=== PATIENT | female | born 1975 | race African-American/Black ===

== ENCOUNTER 2016-07-09 22:28 | Emergency (ER) | payer MEDICAID ==
[~2016-07-09] VITALS: Ht 165.1 cm; Wt 108.9 kg
[~2016-07-09 22:28] MED LIST: HYDRPOW88 PO; LISI10TA6 PO; NORCO 10/325 PO; XANAX PO; [UNRECOGNIZED DRUG - OTHER] PO
[2016-07-09 23:00] VITALS: BP 142/92
[2016-07-09 23:47] LABS: Basophils # (auto) 0 uL; Basophils % (auto) 0.4 % (0.0-2.0); Eosinophils # (auto) 0.2 uL; Eosinophils % (auto) 2.4 % (0.0-7.0); Hematocrit 40.9 % (36.0-46.0); Hemoglobin 13.4 g/dL (12.2-16.2); Lymphocytes # (auto) 3.4 uL; Lymphocytes % (auto) 49.4 % (10.0-50.0); Mean Corpuscular Hemoglobin 27.6 pg (28.0-32.0); Mean Corpuscular Hgb Conc. 32.7 g/dL (32.0-36.0); Mean Corpuscular Volume 84.3 fL (80.0-100.0); Mean Platelet Volume 8.2 fL (7.4-10.4); Monocytes # (auto) 0.7 uL; Monocytes % (auto) 9.6 % (0.0-12.0); Neutrophils # (auto) 2.6 uL; Neutrophils % (auto) 38.2 % (37.0-80.0); Platelet Count (auto) 322 10^3/uL (140-450); Red Cell Distribution Width 13.7 % (11.6-16.0); White Blood Cell 6.8 10^3/uL (4.4-10.8)
[2016-07-09 23:57] LABS: Urine Bilirubin Negative (Negative); Urine Blood TRACE /uL (Negative); Urine Ca Oxalate Crystal FEW (None Seen); Urine Color Yellow (Yellow); Urine Glucose Normal (Normal); Urine Ketone TRACE (Negative); Urine Mucus FEW (None Seen); Urine Nitrite Negative (Negative); Urine RBC 13 /hpf (0 - 4); Urine Squamous Epithelial Cell MOD /hpf (<5)
[2016-07-10 00:01] LABS: INR 0.94 (0.9-1.15); Partial Thromboplastin Time 26.3 sec (22.64-33.71); Prothrombin Time 10.1 sec (9.37-12.3)
[2016-07-10 00:04] LABS: Albumin 3.7 g/dL (3.4-5.0); BUN/Creatinine Ratio 12.4; Calcium 8.6 mg/dL (8.5-10.1); Potassium 3.6 mmol/L (3.5-5.1)
[2016-07-10 00:07] LABS: Bilirubin, Total 0.3 mg/dL (0.2-1.0); Total Protein 8.4 g/dL (6.4-8.2)
== END 2016-07-10 07:06 | disposition left against medical advice (07) ==
LOC: ER 22:33
DX: O46.91 Antepartum hemorrhage, unspecified, first trimester (principal); R10.9 Unspecified abdominal pain; Z53.21 Procedure and treatment not carried out due to patient leaving prior to being seen by health care provider
CPT/HCPCS: 36415; 80053; 81001; 84702; 85025; 85610; 85730

== ENCOUNTER 2018-01-05 20:44 | Observation (INO) | payer MEDICAID | END 2018-01-06 00:01 | disposition home or self-care (01) | DRG 566 | LOC: LDRP 20:44 | PROVIDERS: ADMIT Specialist; ATTEND Specialist | DX: O46.90 Antepartum hemorrhage, unspecified, unspecified trimester (principal); Z3A.00 Weeks of gestation of pregnancy not specified | CPT/HCPCS: 59025; 81002; G0378 ==

== ENCOUNTER 2020-06-18 01:38 | Emergency (ER) | payer MEDICAID, OTHER ==
[~2020-06-18] VITALS: Ht 165.1 cm; Wt 108.9 kg
[~2020-06-18 01:38] MED LIST changes: +LISI-648 PO; -LISI10TA6 PO
[2020-06-18 03:14] LABS: Basophils # (auto) 0 10 ^3/uL (0-0.2); Basophils % (auto) 0.4 % (0.0-2.0); Eosinophils # (auto) 0.1 10 ^3/uL (0-0.8); Eosinophils % (auto) 1.9 % (0.0-7.0); Hematocrit 38.9 % (36.0-46.0); Hemoglobin 13.1 g/dL (12.2-16.2); Lymphocytes # (auto) 2.5 10 ^3/uL (0.4-5.4); Lymphocytes % (auto) 40.4 % (10.0-50.0); Mean Corpuscular Hemoglobin 28.2 pg (28.0-32.0); Mean Corpuscular Hgb Conc. 33.7 g/dL (32.0-36.0); Mean Corpuscular Volume 83.6 fL (80.0-100.0); Monocytes # (auto) 0.5 10 ^3/uL (0-1.3); Monocytes % (auto) 7.2 % (0.0-12.0); Neutrophils # (auto) 3.1 10 ^3/uL (1.6-8.6); Neutrophils % (auto) 50.1 % (37.0-80.0); Nucleated Red Blood Cells % 0.1 %; Platelet Count (auto) 286 10^3/uL (140-450); Red Blood Cells 4.66 10^6/uL (4.0-5.20); Red Cell Distribution Width 14.1 % (11.8-14.3); White Blood Cell 6.3 10^3/uL (4.4-10.8)
[2020-06-18] MEDS ORDERED: ACETAMINOPHEN 325 MG TAB PO ONE (03:30)
[2020-06-18 03:42] LABS: INR 0.93 (0.9-1.15)
[2020-06-18 03:43] LABS: Alanine Aminotransferase 23 U/L (13-56); Albumin 3.6 g/dL (3.4-5.0); Anion Gap 8 (5-15); Aspartate Aminotransferase 15 U/L (15-37); Blood Urea Nitrogen 12 mg/dL (7-18); Calcium 8.6 mg/dL (8.5-10.1); Carbon Dioxide 25 mmol/L (21-32); Chloride 108 mmol/L (98-107); GFR African American 101 mL/min; GFR Non-African American 84 mL/min; Glucose 107 mg/dL (74-106); Magnesium 2.3 mg/dL (1.6-2.6); Potassium 3.5 mmol/L (3.5-5.1); Sodium 141 mmol/L (136-145)
[2020-06-18 03:49] LABS: Alkaline Phosphatase 72 U/L (45-117); Bilirubin, Total 0.3 mg/dL (0.2-1.0); Total Protein 8.4 g/dL (6.4-8.2)
[2020-06-18 04:01] VITALS: BP 130/79
[2020-06-18] MEDS ORDERED: KETOROLAC TROMETH 30 MG/ML 1ML VIAL IV ONE (04:15)
== END 2020-06-18 05:23 | disposition home or self-care (01) ==
LOC: EDBD 01:38 → ER 01:41
DX: R07.89 Other chest pain (principal); R00.2 Palpitations; R06.02 Shortness of breath; R51.9 Headache, unspecified; E66.01 Morbid (severe) obesity due to excess calories; I48.91 Unspecified atrial fibrillation; M19.90 Unspecified osteoarthritis, unspecified site; E78.5 Hyperlipidemia, unspecified; I10 Essential (primary) hypertension; F41.9 Anxiety disorder, unspecified; F17.210 Nicotine dependence, cigarettes, uncomplicated; Z86.2 Personal history of diseases of the blood and blood-forming organs and certain disorders involving the immune mechanism; Z98.890 Other specified postprocedural states; Z68.39 Body mass index [BMI] 39.0-39.9, adult; Z79.899 Other long term (current) drug therapy; Z88.0 Allergy status to penicillin
CPT/HCPCS: 36415; 71045; 80053; 83735; 83880; 84484; 85025; 85610; 93005; 96374; 99285; J1885

== ENCOUNTER 2024-04-05 11:06 | Emergency (ER) | payer MEDICAID ==
[~2024-04-05] VITALS: Ht 165.1 cm; Wt 114.3 kg
[~2024-04-05 11:06] MED LIST changes: -LISI-648 PO; +LISI10TA34 PO
[2024-04-05 12:27] VITALS: BP 152/101; PULSE 93; RESP 20; TEMP 97.9; O2SAT 98
[2024-04-05] MEDS ORDERED: METH4PAK PO (13:01)
[2024-04-05] MEDS ORDERED: NAPR-746 PO (13:01)
[2024-04-05] MEDS ORDERED: CEPH500C PO (13:01)
--- NOTE | 2024-04-05 13:01 | ED.PDOC ---
History of Present Illness(SKN HPI Comments A 48 YEAR OLD FEMALE PRESENTS TO THE ED WITH COMPLAINT OF BILATERAL HAND REDNESS AND BLISTERS. PATIENT STATES SHE GOT HER NAILS DONE YESTERDAY AND BEGAN TO EXPERIENCE A RASH, BLISTERS, AND SWELLING ON HER BILATERAL HANDS. PATIENT DENIES FEVER, CHILLS, SHORTNESS OF BREATH, CHEST PAIN, ABDOMINAL PAIN, NAUSEA, VOMITING, HEADACHE, OR OTHER COMPLAINTS. NO OTHER SYMPTOMS OR MODIFYING FACTORS AT THIS TIME. PATIENT IS ALERT, ORIENTED X 4, AND HAS STEADY GAIT. Chief Complaint: Allergic Reaction Time Seen by MD: 11:17 Primary Care Provider: MAMMO History of Present Illness: Nurses Notes, Medications, Allergies Allergies: Coded Allergies: Penicillins (Verified Allergy, Mild, ITCHING, RASH, 09/28/11) Home Meds Active Scripts Naproxen (Naproxen) 500 Mg Tab, 500 MG PO BID, #30 TAB Prov:NESSA ELLER 04/05/24 Methylprednisolone (Medrol Dosepak) 4 Mg Ramo, 4 MG PO UD, #21 TAB UAD Prov:NESSA ELLER 04/05/24 Cephalexin Monohydrate (Cephalexin) 500 Mg Cap, 1 CAP PO QID, #40 CAP Prov:NESSA ELLER 04/05/24 Reported Medications [Lopril] No Conflict Check, 10 MG PO DAILY 09/29/11 [[place] 10/325] No Conflict Check, 1 TAB PO Q6HP 09/29/11 [Xanax] No Conflict Check, 5 MG PO DAILY 09/29/11 [Hydrochlorothiazide] (Hydrochlorothiazide) No Conflict Check, 50 MG PO DAILY 09/29/11 Lisinopril (Lisinopril) 10 Mg Tab, PO DAILY 03/30/11 Information Source: Patient Mode of Arrival: Ambulatory Severity: Moderate Timing: Days Duration: Since onset, Days Prehospital treatment: None Location: Hand (BILATERAL HANDS) Mechanism: Cosmetic Developed: Rash Occurence: Indoors Object: None Condition of Object: None Retained Foreign Body: No Wound Type: Other (BLISTERS) Immunization Status of Animal: NA Tetanus: Unknown History of: None Associated Signs and Symptoms: Redness, Swelling, Pain Past Medical History PAST MEDICAL HISTORY: Anemia, Anxiety, Arthritis, High Lipids, HTN Surgical History: 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 SPECIALIST History: Denies all 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 SPECIALIST Hx Family History Family History: No family hx of Cancer, No family hx of DM, No family hx of HTN Social History Smoker: Cigarettes, Less Than 1 Pack/Day Alcohol: Occasionally Drugs: Denies Drug Use Lives In: Home Constitutional: denies: chills, diaphoresis, fatigue, fever, malaise, sweats, weakness, others EENTM: denies: blurred vision, double vision, ear bleeding, ear discharge, ear drainage, ear pain, ear ringing, eye pain, eye redness, hearing loss, mouth pain, mouth swelling, nasal discharge, nose bleeding, nose congestion, nose pain, photophobia, tearing, throat pain, throat swelling, voice changes, others Respiratory: denies: cough, hemoptysis, orthopnea, SOB at rest, shortness of breath, SOB with excertion, stridor, wheezing, others Cardiovascular: denies: chest pain, dizzy spells, diaphoresis, Dyspnea on exertion, edema, irregular heart beat, left arm pain, lightheadedness, palpitations, PND, syncope, others Gastrointestinal: denies: abdomen distended, abdominal pain, blood streaked bowels, constipated, diarrhea, dysphagia, difficulty swallowing, hematemesis, melena, nausea, poor appetite, poor fluid intake, rectal bleeding, rectal pain, vomiting, others Genitourinary: denies: abnormal vagina bleeding, burning, dyspareunia, dysuria, flank pain, frequency, hematuria, incontinence, pain, , vagina discharge, urgency, others Neurological: denies: dizziness, fainting, headache, left sided numbness, left sided weakness, numbness, paresthesia, pre-existing deficit, right sided numbness, right sided weakness, seizure, speech problems, tingling, tremors, weakness, others Musculoskeletal: denies: back pain, gout, joint pain, joint swelling, muscle pain, muscle stiffness, neck pain, others Integumetry: reports: lesions, rash (RASH WITH BLISTERS OF BILATERAL HANDS), wounds; denies: bruises, change in color, change in hair/nails, dryness, laceration, lumps, others Allergic/Immunocompromised: reports: Itching; denies: Difficulty Healing, Frequent Infections, Hives, others Hematologic/Lymphatic: denies: anemia, blood clots, easy bleeding, easy bruising, swollen glands, others Endocrine: denies: excessive hunger, excessive sweating, excessive thirst, excessive urination, flushing, intolerance to cold, intolerance to heat, unexplained weight gain, unexplained weight loss, others Psychiatric: denies: anxiety, bipolar disorder, depression, hopeless, panic disorder, schizophrenia, sleepless, suicidal, others All Other Systems: Reviewed and Negative Physical Exam General Appearance: No Apparent Distress, Obese HEENT: Normal ENT Inspection, PERRL/EOMI, Pharynx Normal, TMs Normal Neck: Full Range of Motion, Non-Tender, Normal, Normal Inspection Respiratory: Chest Non-Tender, Lungs Clear, No Accessory Muscle Use, No Respiratory Distress, Normal Breath Sounds Cardiovascular: No Edema, No JVD, No Murmur, No Gallop, Normal Peripheral Pulses, Regular Rate/Rhythm Breast Exam: Deferred Gastrointestinal: No Organomegaly, Non Tender, No Pulsatile Mass, Normal Bowel Sounds, Soft Genitalia: Deferred Pelvic: Deferred Rectal: Deferred Extremities: No calf tenderness, Normal capillary refill, Normal range of motion, No pedal edema, Tender (WITH BLISTER WOUND ON BILATERAL HAND, NO BONY TENDERNESS, SWELLING AND DEFORMITY. ) Musculoskeletal : Apperance: Normal Neurologic: Alert, chipping machine operator II-XII nml as Tested, No Motor Deficits, Normal Affect, Normal Mood, No Sensory Deficits Cerebellar Function: Normal Reflexes: Normal Skin: Dry, Rash (ERYTHEMA AND VESICLE SKIN RASH ON BILATERAL HAND AND FINGERS, NO PUS DRAINAGE, SUSPECT SOFT TISSUE INFECTION. ), Warm Peripheral Pulses: 2+ carotid (R), 2+ carotid (L) Lymphatic: No Adenopathy Was a procedure done? Was a procedure done?: No Differential Diagnosis (INTG) Differential Diagnosis: N/A Differential Diagnosis: Atopic dermatitis, Cellulitis, Contact Dermatitis, Impetigo, Intertrigo, Urticaria, Other (ALLERGIC REACTION) Differential Diagnosis: N/A Abscess: N/A Differential Diagnosis: N/A X-Ray, Labs, Meds, VS Vital Signs Date Time Temp Pulse Resp B/P (MAP) Pulse Ox O2 Delivery O2 Flow Rate FiO2 04/05/24 12:27 97.9 93 20 152/101 (118) 98 97.9 04/05/24 12:27 93 20 98 Room Air 04/05/24 11:14 97.9 93 20 152/101 (118) 98 Current Medications Medications (Trade) Dose Ordered Sig/Raffi Route Start Time Stop Time Status Last Admin Ceftriaxone Sodium (Rocephin) 1,000 mg ONCE ONCE IM 04/05/24 13:00 04/05/24 13:01 DC 04/05/24 13:07 X-Ray, Labs, Meds, VS Comment EXTERNAL NOTES: NONE INDEPENDENT HISTORIANS: NONE SOCIAL DETERMINANTS OF HEALTH: NONE LABS ORDERED: NONE REVIEWED AND INTERPRETED RESULTS: NONE IMAGING ORDERED: NONE TREATMENTS ORDERED: ROCEPHIN 1G IM PATIENT'S CASE AND RESULTS HAVE BEEN DISCUSSED WITH THE ED ATTENDING PHYSICIAN AND THEY AGREE WITH MY PLAN OF CARE. I HAVE INSTRUCTED THE PATIENT TO FOLLOW UP WITH THEIR PCP IN 1-2 DAYS. THE PATIENT FULLY UNDERSTANDS THEIR RESULTS AND ARE AWARE THEY NEED TO FOLLOW UP WITH THEIR PCP FOR FURTHER EVALUATION IF THEIR SYMPTOMS PERSIST. Time of 1ST Reevaluation: 13:20 Reevaluation 1ST: Improved Patient Education/Counseling: Diagnosis, Treatment, Need For Follow Up Family Education/Counseling: Diagnosis, Treatment, Need For Follow Up Medical Screening: No EMC Exist At This Time Departure 1 Departure Time of Disposition: 13:20 Impression: Primary Impression: Allergic reaction Qualified Codes: T78.40XA - Allergy, unspecified, initial encounter Additional Impression: Suspected soft tissue infection Disposition: HOME / SELF CARE / HOMELESS Condition: Stable Additional Instructions: FOLLOW UP WITH PCP IN 1-2 DAYS. TAKE MEDICATIONS PRESCRIBED. RETURN TO ED FOR ANY NEW OR WORSENING SYMPTOMS. e-Prescriptions Naproxen (Naproxen) 500 Mg Tab 500 MG PO BID, #30 TAB Prov: NESSA ELLER 04/05/24 Methylprednisolone (Medrol Dosepak) 4 Mg Ramo 4 MG PO UD, #21 TAB UAD Prov: NESSA ELLER 04/05/24 Cephalexin Monohydrate (Cephalexin) 500 Mg Cap 1 CAP PO QID, #40 CAP Prov: NESSA ELLER 04/05/24 Discharged With: Self Critical Care Note Critical Care Time?: No Stability Stability form required: No I personally scribed for NESSA ELLER ([email or web address]) on 04/05/24 at 13:01. Electronically submitted by Roderick Tovar ([email or web address]). NESSA ELLER Apr 05, 2024 13:01
[2024-04-05] MEDS: cefTRIAXone SOD 1,000 MG VL IM ONE (13:07)
== END 2024-04-05 13:16 | disposition home or self-care (01) ==
LOC: ER 11:20
DX: T78.40XA Allergy, unspecified, initial encounter (principal); L08.89 Other specified local infections of the skin and subcutaneous tissue; I10 Essential (primary) hypertension; F41.9 Anxiety disorder, unspecified; M19.90 Unspecified osteoarthritis, unspecified site; F17.210 Nicotine dependence, cigarettes, uncomplicated; Z86.2 Personal history of diseases of the blood and blood-forming organs and certain disorders involving the immune mechanism; Z98.890 Other specified postprocedural states; Z88.0 Allergy status to penicillin; Z79.899 Other long term (current) drug therapy; X58.XXXA Exposure to other specified factors, initial encounter
CPT/HCPCS: 96372; 99283; J0696